=== PATIENT | female | born 2000 | race Caucasian/White ===

== ENCOUNTER 2025-04-07 18:07 | Emergency (ER) | payer BC ==
[~2025-04-07] VITALS: Ht 172.7 cm; Wt 95.3 kg
--- NOTE | 2025-04-07 18:22 | ELECTROCARDIOGRAPH REPORT ---
[facility] Test Date: 2025-04-07 Test Time: 18:20:19 Pat Name: KIMBERLEY ROGERS Department: EMERGENCY ROOM Patient ID: [id number] Room: Gender: F Clother In: CUONG : 2000 Requested By: BERNY HERNANDEZ Order Number: [id number] Reading MD: Dr. Gary Rock Measurements Intervals [place] Rate: 151 P: 78 CO: 87 QRS: 66 QRSD: 90 T: 23 QT: 384 QTc: 609 Interpretive Statements Sinus tachycardia Consider right atrial enlargement Borderline Q waves in inferior leads Minimal ST depression, diffuse leads Prolonged QT interval Electronically Signed On 04-09-2025 21:14:[address] Gary Rock Please click the below link to view image of tracing.
--- NOTE | 2025-04-07 18:28 | Physician Documentation ---
History of Present Illness ~ Chief Complaint: Flu Symptoms Stated Complaint: MULTIPLE MEDICAL ISSUES Time Seen by MD: 20:25 HPI This is a 25-year-old female who presents with sternal chest pressure/pain described as dry, and shortness of breath past three days with cough and fever onset today. Overall her symptoms worsened significantly enough today to prompt her to come to the emergency department. Patient reports cough is non productive. Patient denies nausea/vomiting. No relief with Advil or inhalers. She feels better laying down. Patient denies calf tenderness. She notes some left sided shooting pains to hip and elbow. Patient denies any other associated symptoms. Patient denies any other alleviating or exacerbating factors at this time. Medication Reconciliation Allergies: Coded Allergies: No Known Allergies (Unverified , 04/07/25) Past Medical History Past Medical History: No Pertinent History Past Surgical History: noncontributory Review of Systems All Other Systems at this time: Reviewed and Negative ROS As stated above in the HPI, otherwise all systems are reviewed and negative. Physical Exam Vital Signs: Temperature: 102.4, Source: Temporal, Heart Rate: 150, Respiratory Rate: 18, BP: 124/89, Pulse Oximetry: 97, Weight: 95.300 Oxygen Flow Rate: 0 Physical Exam General: Patient is awake, alert, oriented x4 in no acute distress and well appearing.~ Head: Normocephalic and atraumatic. Eyes: Conjunctival normal. EOMI. PERRL. ENT: Mucous membranes moist. Neck: Supple, trachea is midline. Chest: Clear to auscultation bilaterally without rales, rhonchi, or wheezes. There is no accessory muscle use or retractions. Cardiac: Tachycardia without murmurs, gallops, or rubs. Abd: Soft, nondistended, nontender, with normoactive bowel sounds. No guarding, rebound, or rigidity. Extremities: Normal strength. Normal range of motion. No deformities or edema. Back: No midline spinal or CVA tenderness. Skin: Warm and dry with no significant rash appreciated. Neuro: Cranial nerves II-XII grossly intact. No focal neuro deficits. Patient ambulating without difficulty. Progress Results/Orders Results/Orders Orders - JARAD MUELLER MD Cta Chest Pe (04/07/25 22:35) Completed Orders - MUELLER,JARAD G MD Acetaminophen 1,000mg/100ml Iv (Ofirmev (04/07/25 19:50) Normal Saline 1000ml (0.9% Sodium Chlori (04/07/25 19:50) D-Dimer (04/07/25 20:58) Cta Chest Pe (04/07/25 22:35) Electrocardiogram (04/07/25 22:37) Iohexol 350mg/Ml 100ml (Omnipaque 350mg/ (04/07/25 23:33) Vital Signs 04/07/25 04/07/25 04/07/25 04/07/25 18:13 18:39 19:43 20:03 Temp 102.4 102.1 Pulse 150 120 121 Resp 18 12 16 B/P (MAP) 124/89 100/46 (64) 117/65 (82) Pulse Ox 97 96 94 O2 Flow Rate 0 0 0 04/07/25 04/07/25 04/08/25 21:02 23:57 00:28 Temp 98.9 Pulse 117 107 99 Resp 20 16 20 B/P (MAP) 97/57 (70) 117/69 (85) 115/70 Pulse Ox 96 97 98 O2 Flow Rate 0 0 Laboratory Tests Test 04/07/25 19:19 04/07/25 21:18 White Blood Count 8.5 Red Blood Count 4.73 Hemoglobin 14.0 Hematocrit 41.6 Mean Corpuscular Volume 88.0 Mean Corpuscular Hemoglobin 29.6 Mean Corpuscular Hemoglobin Concent 33.7 Red Cell Distribution Width 12.7 Platelet Count 115 L Mean Platelet Volume 11.5 H Neutrophils (%) (Auto) 89.3 H Lymphocytes (%) (Auto) 3.6 L Monocytes (%) (Auto) 6.8 Eosinophils (%) (Auto) 0.1 Basophils (%) (Auto) 0.2 Neutrophils # (Auto) 7.6 Lymphocytes # (Auto) 0.3 L Monocytes # (Auto) 0.6 Eosinophils # (Auto) 0.0 Basophils # (Auto) 0.0 CBC Comment Sodium Level 143 Potassium Level 3.9 Chloride Level 106 Carbon Dioxide Level 24.8 Anion Gap 12 Blood Urea Nitrogen 10 Creatinine 1.03 H Estimated GFR/1.73 m2 64 BUN/Creatinine Ratio 9.7 L Glucose Level 105 H Lactic Acid Level 1.9 Calcium Level 9.0 Pro-B-Type Natriuretic Peptide 43 Albumin 3.9 Thyroid Stimulating Hormone (TSH) 1.18 Chemistry Comments D-Dimer 0.84 H D-Dimer Comment Microbiology Date/Time Source Procedure Growth Status 04/07/25 19:24 Blood Arm Left Blood Culture - Preliminary NEGATIVE (LESS THAN 24 HOURS) Resulted EKG/XRAY/CT/US/VASC/MRI EKG : Intepreting Monitor?: No Additional Comment 2342: Sinus tachycardia rate of 116, normal axis, no ST changes. Chest X-Ray : Interpreted By: radiologist Views: 1 VIEW Additional Comments CHEST RADIOGRAPH INDICATION: Cough/chest pain TECHNIQUE: DI CHEST,TWO VIEWS Comparison: None FINDINGS: The cardiac silhouette is unremarkable. The lungs demonstrate no pulmonary airspace consolidation. The pulmonary vasculature is unremarkable. There is no pleural effusion. There is no pneumothorax. IMPRESSION: No pulmonary airspace consolidation. Electronically Signed by:CAPRI DURAN MD Date & Time: 04/07/251850 Dictated by: CAPRI DURAN MD Dictation date and time: 04/07/251850 Primary Care Provider: NO PRIMARY CARE PROVIDER cc: BRIAN HURD ~ CT : Interpreted By: radiologist CT: chest With Contrast?: No Impression CTA Chest with intravenous contrast INDICATION: sob COMPARISON: DI CHEST,TWO VIEWS on DOS: 04/07/25 TECHNIQUE: Multidetector spiral CTA of the chest was performed of the chest with intravenous contrast. PULMONARY ANGIOGRAPHY PROTOCOL was utilized using a bolus- tracking technique centered on the main pulmonary artery. Axial, coronal and sagittal multiplanar and MIP reformats were performed. Radiation Dose : 1. Chest: CTDI volume is 15.51 mGy. Dose-length product is 924.26 mGy*cm The dose indicators for CT are the volume Computed Tomography (CT) Dose Index (CTDIvol) and the Dose Length Product (DLP), and are measured in units of mGy and mGy-cm, respectively. These indicators are not patient dose, but values generated from the CT scanner acquisition factors. The report includes radiation exposure data for exposures received during this examination. FINDINGS: Pulmonary artery: No pulmonary embolism. Lower neck: Normal thyroid. Lungs: No focal consolidation, pleural effusion or pneumothorax. Moderate bibasilar atelectasis. Heart/Vascular Structures: Normal heart size. No pericardial effusion. Lymph Nodes: No adenopathy Musculoskeletal: No acute osseous abnormality. Soft tissues: Normal. Upper abdomen: Limited portions of the upper abdomen are unremarkable. IMPRESSION: 1. No pulmonary embolism. 2. No acute thoracic finding. Electronically Signed by:GONZALO VITAL MD Date & Time: 04/07/25 6307 Dictated by: OGNZALO VITAL MD Dictation date and time: 04/07/25 2323 Primary Care Provider: NO PRIMARY CARE PROVIDER cc: JARAD MUELLER MD ~ Medical Decision Making Additional information obtaine: N/A Findings Patient presents to the emergency room with chest pain that has per HPI. Differentials include but are not limited to ACS, pulmonary embolism, musculoskeletal pain, costochondritis therefore emergent labs and imaging indicated. Patient was noted tachycardia which he had not resolved with acetaminophen in saline therefore that has concern that this tachycardia in the light of chest pain and shortness of breath could represent pulmonary embolism therefore D-dimer performed which was elevated. CT scan performed that has negative for pulmonary embolism or pneumonia. Given patient's a rate of symptoms I feel she is suffering from flu-like illness. Symptomatic treatment only at this time. No antibiotics indicated. Patient's heart score is reassuring and she is considered low risk. Heart Score: 1 Differential Dx:Considerations: Include: anxiety, asthma, bronchitis, cardiogenic shock, CHF, COPD, dysrhythmia, hypertension, accelerated, hypertension, essential, hypertension, malignant, hyperventilation, hyponatremia, myocardial infarction, panic attack, pneumonia, pneumonitis, pneumothorax, PSVT, pulmonary embolism, respiratory distress, respiratory failure, sinusitis, upper resp. infection, other Departure Time of Disposition: 00:00 Disposition: 01 HOME / SELF CARE / HOMELESS Impression: Primary Impression: flu-like illness Condition: Stable Discharge Instructions: Viral Illness, Influenza, Adult Additional Instructions: Follow up with you PCP for further evaluation and care. Return to the ED if you develop any new or worsening symptoms. Referrals: NO PRIMARY CARE PROVIDER (PCP) Education Educated: Patient Educated regarding: diagnosis, treatment, need for follow up Signature Scribe Signature: Scribed for Jarad Mueller MD by Harriet Koo . 04/07/25 23:02 Attestation: The note accurately reflects work and decisions made by me.Jarad Mueller MD 04/08/25 04:32 BRIAN HURD Apr 07, 2025 18:28 HARRIET LUZ Apr 07, 2025 23:00 JARAD MUELLER MD Apr 08, 2025 04:33
--- NOTE | 2025-04-07 18:53 | RADIOLOGY REPORT ---
CHEST RADIOGRAPH INDICATION: Cough/chest pain TECHNIQUE: DI CHEST,TWO VIEWS Comparison: None FINDINGS: The cardiac silhouette is unremarkable. The lungs demonstrate no pulmonary airspace consolidation. The pulmonary vasculature is unremarkable. There is no pleural effusion. There is no pneumothorax. IMPRESSION: No pulmonary airspace consolidation.
[2025-04-07 19:28] LABS: MEAN PLATELET VOLUME 11.5 FL (7.4-10.4); RED CELL DISTRIBUTION WIDTH 12.7 % (11.5-14.5)
[2025-04-07 19:46] LABS: CREATININE 1.03 MG/DL (0.40-0.90); PRO BRAIN NATRIURETIC PEPTIDE 43 PG/ML (0-125); TOTAL CARBON DIOXIDE 24.8 MMOL/L (24-32); eCRCL 83 ML/MIN; eGFR 64 ML/MIN
[2025-04-07] MEDS: acetaminophen 1,000mg/100ml IV 100 ML IV ONE (20:00)
[2025-04-07] MEDS: normal saline 1000ml 1,000 ML IV ONE (20:00)
--- NOTE | 2025-04-07 23:43 | ELECTROCARDIOGRAPH REPORT ---
[facility] Test Date: 2025-04-07 Test Time: 23:42:45 Pat Name: KIMBERLEY ROGERS Department: PSYCHIATRIC- Room: Gender: F [employer]: : 2000 Requested By: SHAHLA NETTLES Order Number: [id number] Reading MD: Dr. Gary Rock Measurements Intervals [place] Rate: 116 P: 85 MA: 147 QRS: 38 QRSD: 90 T: 1 QT: 347 QTc: 483 Interpretive Statements Sinus tachycardia Borderline T abnormalities, anterior leads Borderline prolonged QT interval Electronically Signed On 04-09-2025 21:14:[address] Gary Rock Please click the below link to view image of tracing.
--- NOTE | 2025-04-07 23:49 | RADIOLOGY REPORT ---
CTA Chest with intravenous contrast INDICATION: sob COMPARISON: DI CHEST,TWO VIEWS on DOS: 04/07/25 TECHNIQUE: Multidetector spiral CTA of the chest was performed of the chest with intravenous contrast. PULMONARY ANGIOGRAPHY PROTOCOL was utilized using a bolus- tracking technique centered on the main pulmonary artery. Axial, coronal and sagittal multiplanar and MIP reformats were performed. Radiation Dose : 1. Chest: CTDI volume is 15.51 mGy. Dose-length product is 924.26 mGy*cm The dose indicators for CT are the volume Computed Tomography (CT) Dose Index (CTDIvol) and the Dose Length Product (DLP), and are measured in units of mGy and mGy-cm, respectively. These indicators are not patient dose, but values generated from the CT scanner acquisition factors. The report includes radiation exposure data for exposures received during this examination. FINDINGS: Pulmonary artery: No pulmonary embolism. Lower neck: Normal thyroid. Lungs: No focal consolidation, pleural effusion or pneumothorax. Moderate bibasilar atelectasis. Heart/Vascular Structures: Normal heart size. No pericardial effusion. Lymph Nodes: No adenopathy Musculoskeletal: No acute osseous abnormality. Soft tissues: Normal. Upper abdomen: Limited portions of the upper abdomen are unremarkable. IMPRESSION: 1. No pulmonary embolism. 2. No acute thoracic finding.
[2025-04-08 00:28] VITALS: BP 115/70; PULSE 99; RESP 20; TEMP 98.9; O2SAT 98
== END 2025-04-08 00:28 | disposition home or self-care (01) ==
LOC: ER 18:09
DX: J11.1 Influenza due to unidentified influenza virus with other respiratory manifestations (principal); R06.02 Shortness of breath
CPT/HCPCS: 36415; 71046; 71275; 80048; 83605; 83880; 84443; 85025; 85379; 87040; 93005; 96361; 96374; 99285; J0131; J7030; Q9967